=== PATIENT | female | born 1955 | race Caucasian/White ===

== ENCOUNTER 2019-05-09 12:30 | Inpatient (IN) | payer BC ==
[2019-05-09 13:21] LABS: Basophils % (A) 1 %; Eosinophils # (A) 0.1 k/uL (0-0.7); Eosinophils % (A) 2 %; HCT 40.2 % (34.0-46.0); HGB 13.6 gm/dL (11.4-16.0); Lymphocytes # (A) 1.5 k/uL (1.0-4.8); Lymphocytes % (A) 23 %; MCH 31.2 pg (25.0-35.0); MCHC 33.9 g/dL (31.0-37.0); Mean Platelet Volume 7.1; Monocytes # (A) 0.3 k/uL (0-1.0); Monocytes % (A) 5 %; Neutrophils # (A) 4.4 k/uL (1.3-7.7); Neutrophils % (A) 66 %; Platelet Count 233 k/uL (150-450); RBC 4.37 m/uL (3.80-5.40); RDW 13.8 % (11.5-15.5); WBC 6.7 k/uL (3.8-10.6)
--- NOTE | 2019-05-09 13:29 | XR ---
EXAMINATION TYPE: XR chest 2V DATE OF EXAM: 05/09/2019 COMPARISON: NONE HISTORY: Chest pain TECHNIQUE: Frontal and lateral views of the chest are obtained. FINDINGS: There is no focal air space opacity, pleural effusion, or pneumothorax seen. The cardiac silhouette size is within normal limits. Mild multilevel degenerative changes of the spine. The oss eous structures are intact. IMPRESSION: No acute cardiopulmonary process.
[2019-05-09 13:32] LABS: Albumin 4.6 g/dL (3.5-5.0); Calcium 9.6 mg/dL (8.4-10.2); INR 0.9 (<1.2); Magnesium 1.9 mg/dL (1.6-2.3); Partial Thromboplastin Time 23.2 sec (22.0-30.0); Potassium 4.4 mmol/L (3.5-5.1); Prothrombin Time 10.1 sec (9.0-12.0); Total Bilirubin 0.5 mg/dL (0.2-1.3); Total Protein 7.8 g/dL (6.3-8.2)
[2019-05-09 13:51] LABS: Appearance,Urine Clear (Clear); Bilirubin,Urine Negative (Negative); Blood,Urine Small (Negative); Color,Urine Light Yellow; Glucose,Urine (UA) Negative (Negative); Ketones,Urine Negative (Negative); Leukocyte Esterase,Urine Small (Negative); Mucus,Urine Rare /hpf; Nitrite,Urine Negative (Negative); Protein,Urine Negative (Negative); RBC,Urine 2 /hpf (0-5); Specific Gravity,Urine 1.016 (1.001-1.035); Squamous Epithelial Cell,Urine 1 /hpf (0-4); Urobilinogen,Urine <2.0 mg/dL (<2.0)
--- NOTE | 2019-05-09 15:39 | ED ---
Chest Pain HPI - General Chief Complaint: Chest Pain Stated Complaint: chest pain Time Seen by Provider: 05/09/19 12:55 Source: patient Mode of arrival: wheelchair Limitations: no limitations - History of Present Illness Initial Comments: Patient is a 64-year-old female presenting to the emergency Department with complaints of chest pain that has been intermittent for the last 2 days. Patient states she noticed the pain yesterday while she was dancing. Patient states it felt like it was pressure across the top of her chest. Patient states it lasted approximately 2 hours. Patient denies any shortness of breath with this episode. Patient states it then happened again today while she was doing stuff around the house. She describes the pain as chest pressure, non radiating. No alleviating factors. Patient states right now, her pain is minimal 2/10. Patient denies any fever, chills, nausea, vomiting, abdominal pain. Patient states she was recently diagnosed with hyperlipidemia and her PCP wanted to do an EKG but she had refused. Patient has no previous history of heart disease. Upon arrival to ER, BP is 173/94, rest of vital signs are normal, afebrile. - Related Data Home Medications Medication Instructions Recorded Confirmed Cholecalciferol [Vitamin D3 (25 1,000 unit PO DAILY 05/09/19 05/09/19 Mcg = 1000 Iu)] Levothyroxine Sodium [Synthroid] 100 mcg PO DAILY 05/09/19 05/09/19 Lisinopril [Zestril] 10 mg PO DAILY 05/09/19 05/09/19 Magnesium 200 mg PO DAILY 05/09/19 05/09/19 [place]-3 Fatty Acids/Fish Oil [Fish 1 cap PO DAILY 05/09/19 05/09/19 Oil 1,000 mg Softgel] Red Yeast Rice 600 mg PO DAILY 05/09/19 05/09/19 Allergies Allergy/AdvReac Type Severity Reaction Status Date / Time No Known Allergies Allergy Verified 05/09/19 13:17 Review of Systems ROS Statement: Those systems with pertinent positive or pertinent negative responses have been documented in the HPI. ROS Other: All systems not noted in ROS Statement are negative. EKG Findings - EKG Comments: EKG Findings:: Ventricular rate 68, AK interval 194, QTC 431. Normal sinus rhythm, no acute ST segment changes. Repeat EKG approximately half hour later shows ventricular rate 59, AK interval 200, QTC 413. Slight sinus bradycardia otherwise normal sinus rhythm. Past Medical History Past Medical History: Hypertension, Thyroid Disorder History of Any Multi-Drug Resistant Organisms: None Reported Additional Past Surgical History / Comment(s): thyroid surgery Past Psychological History: No Psychological Hx Reported Smoking Status: Never smoker Past Alcohol Use History: Occasional Past Drug Use History: None Reported General Exam - General Exam Comments Initial Comments: GENERAL: Well-appearing, well-nourished and in no acute distress. HEAD: Atraumatic, normocephalic. EYES: Pupils equal round and reactive to light, extraocular movements intact, sclera anicteric, conjunctiva are normal. ENT: TMs normal, nares patent, oropharynx clear without exudates. Moist mucous membranes. NECK: Normal range of motion, supple without lymphadenopathy or JVD. LUNGS: Breath sounds clear to auscultation bilaterally and equal. No wheezes rales or rhonchi. HEART: Regular rate and rhythm without murmurs, rubs or gallops. No pain with palpation of the sternum. ABDOMEN: Soft, nontender, normoactive bowel sounds. No guarding, no rebound. No masses appreciated. : Deferred EXTREMITIES: Normal range of motion, no pitting or edema. No clubbing or cyanosis. NEUROLOGICAL: Cranial nerves II through XII grossly intact. Normal speech, normal gait. PSYCH: Normal mood, normal affect. SKIN: Warm, Dry, normal turgor, no rashes or lesions noted. Limitations: no limitations Course Vital Signs 05/09/19 12:48 Temperature 98.5 F Pulse Rate 65 Respiratory 18 Rate Blood Pressure 173/94 O2 Sat by Pulse 99 Oximetry Chest Pain [facility] Patient is a 64-year-old female presenting with chest pain intermittent 2 days. Patient states onset started yesterday while she was dancing. Patient describes the pain as chest pressure across the top of her chest both left and right. Patient states yesterday up so lasted approximately 2 hours. There is no alleviating factors. Upon arrival to ER, BP slightly elevated rest of vital signs within normal limits. Afebrile. Patient's pain right now is very minimal 1/10. Patient's exam is unremarkable. CBC, CMP, coags, UA are all within normal limits. Troponin is 0.027. Chest x-ray shows no acute cardiopulmonary process. Given slight increase in troponin patient will be observed for repeat trop's and cardio consult. Case discussed with Dr. Morgan. Pt accepted by Dr. Hall. Disposition Clinical Impression: Chest pain Disposition: ADMITTED IP TO THIS HOSP Condition: Stable Instructions (If sedation given, give patient instructions): Chest Pain (ED) Is patient prescribed a controlled substance at d/c from ED?: No Referrals: Dago Medina MD [Primary Care Provider] - 1-2 days Decision Date: 05/09/19 Decision Time: 15:45
[2019-05-09] MEDS ORDERED: traMADol 50 MG TAB PO PRN (15:41)
[2019-05-09] MEDS ORDERED: NALOXONE 0.4 MG/ML 1 ML VIAL IV PRN (15:41)
[2019-05-09] MEDS ORDERED: ACETAMINOPHEN TAB 325 MG TAB PO PRN (15:41)
[2019-05-09] MEDS: SODIUM CHLORIDE 0.9% 1,000 ML IV SCH (16:54)
[2019-05-09] MEDS ORDERED: LISINOPRIL 10 MG TAB PO STA (17:26)
[2019-05-09] MEDS ORDERED: HEPARIN SODIUM,PORCINE 5,000 UNIT/ML 1 ML VIAL IV ONE (17:28)
[2019-05-09] MEDS ORDERED: HEPARIN SODIUM,PORCINE 5,000 UNIT/ML 1 ML VIAL IV PRN (17:28)
[2019-05-09] MEDS ORDERED: HEPARIN SOD,PORK IN 0.45% NACL 25,000 UNIT in 0.45% NACL 1 250ML.BAG IV SCH (17:30)
[2019-05-09] MEDS: METOPROLOL TARTRATE 12.5 MG TAB PO SCH (19:34)
[2019-05-09] MEDS ORDERED: ATORVASTATIN 40 MG TAB PO SCH (21:00)
[2019-05-09] MEDS ORDERED: SODIUM CHLORIDE 0.9% 1,000 ML in EMPTY BAG 1 BAG IV ONE (23:42)
[2019-05-09] MEDS ORDERED: ALPRAZolam 0.5 MG TAB PO PRN (23:42)
[2019-05-09] MEDS ORDERED: NITROGLYCERIN SL TABS 0.4 MG TAB SUBLINGUAL PRN (23:42)
[2019-05-09] MEDS ORDERED: ASPIRIN 325 MG TAB PO STA (23:42)
[2019-05-10] MEDS ORDERED: SODIUM CHLORIDE 0.9% 1,000 ML IV SCH
[2019-05-10] MEDS: METOPROLOL TARTRATE 12.5 MG TAB PO SCH ×2 (06:02→09:49)
[2019-05-10] MEDS: MAGNESIUM OXIDE 400 MG TAB PO SCH (06:03)
[2019-05-10] MEDS: LEVOTHYROXINE 100 MCG TAB PO SCH ×2 (06:03→23:58)
[2019-05-10] MEDS: LISINOPRIL 10 MG TAB PO SCH (06:03)
--- NOTE | 2019-05-10 06:24 | CONS ---
CONSULTATION Sherice Gonzalez is a 64-year-old lady with a history of hypertension and hypercholesterolemia, also has had a subtotal thyroidectomy. She is otherwise a fairly active person. Has not had a stress test in the past. There was a festival and she danced pretty much all day, had a very good time, but she started feeling chest pressure and heaviness and came into the emergency room. EKG in the ER was unremarkable and the initial troponin was unremarkable. However, the repeat troponin is abnormal at 0.147. EKG is still unremarkable. She is resting comfortably without symptoms. Her chest pressure has improved. Her laboratory data otherwise is unremarkable. Renal function is good. Hemoglobin and platelet count are good. Patient is free of chest pain, but clearly there is evidence of chest discomfort suggestive of an acute ischemic syndrome with abnormal troponin. Because of non-ST elevation FL, I am recommending coronary angiography. The rationale, risks, benefits, options were explained to the patient. She understands all details and wishes to proceed with the procedure. PAST MEDICAL HISTORY: This is remarkable for hypertension and hypercholesterolemia. She does not take any cholesterol medications. She also has hypothyroidism on replacement therapy. No documented evidence of any prior myocardial infarction or CVA. ALLERGIES: None. MEDICATIONS: Medications include red yeast rice, levothyroxine 100 mcg daily, Zestril 10 mg daily, and she takes omega-3 fatty acids She is status post thyroid surgery. CORONARY RISK FACTORS: Hypertension, hyperlipidemia are major risk factors. No family history and patient is not a smoker. PHYSICAL EXAMINATION: On examination, blood pressure is 124/70, pulse rate is 60 per minute, regular. HEENT: Unremarkable. Fundus was not examined by me. Neck is supple. No JVD. I do not hear any carotid bruit. There is no thyromegaly. Heart exam reveals S1, S2 heard normally in all areas. Lungs are clear. Abdomen is soft, nontender. Lower extremities reveal normal pulses. No edema. Central nervous system is grossly within normal limits. EKG revealed sinus bradycardia no acute changes. LABORATORY DATA: Laboratory data suggests elevated troponin at 0.147. IMPRESSION: 1. Acute ischemic syndrome with non-ST elevation myocardial infarction in a patient with exertional chest pain strongly suggestive of angina pectoris. 2. Hypertension. 3. Hypercholesterolemia. 4. History of thyroid surgery on replacement therapy. RECOMMENDATIONS: I am recommending that we heparinize the patient, place her on aspirin, beta blockers and I am advising coronary angiography and intervention based on the findings. The rationale, risks, benefits, options were explained to the patient. She understands all details and wishes to proceed with the procedure which will be scheduled for 7:30 a.m. tomorrow. LESTER / YISEL: [id number] /
[2019-05-10 06:36] LABS: Basophils # (A) 0.1 k/uL (0-0.2); Basophils % (A) 1 %; Eosinophils # (A) 0.2 k/uL (0-0.7); Eosinophils % (A) 3 %; HCT 41.4 % (34.0-46.0); HGB 13.8 gm/dL (11.4-16.0); Lymphocytes # (A) 2.4 k/uL (1.0-4.8); Lymphocytes % (A) 38 %; MCH 30.8 pg (25.0-35.0); MCHC 33.3 g/dL (31.0-37.0); MCV 92.7 fL (80.0-100.0); Mean Platelet Volume 7.2; Monocytes # (A) 0.3 k/uL (0-1.0); Monocytes % (A) 5 %; Neutrophils # (A) 3.1 k/uL (1.3-7.7); Neutrophils % (A) 49 %; Platelet Count 231 k/uL (150-450); RBC 4.47 m/uL (3.80-5.40); WBC 6.4 k/uL (3.8-10.6)
[2019-05-10] MEDS ORDERED: VERAPAMIL 2.5 MG/ML 2 ML AMP ONE (07:23)
[2019-05-10] MEDS ORDERED: LIDOCAINE 1% INJ 10MG/ML (20 ML MDV) ONE ×2 (07:23→11:59)
[2019-05-10] MEDS ORDERED: LIDOCAINE 1% INJ 10MG/ML (20 ML MDV) SQ ONE (07:37)
[2019-05-10] MEDS ORDERED: MIDAZOLAM (PF) 2 MG/2 ML VIAL IV ONE (07:37)
[2019-05-10] MEDS ORDERED: SODIUM CHLORIDE 0.9% 500 ML 500 ML IV ONE (07:37)
[2019-05-10] MEDS ORDERED: BIVALIRUDIN 250 MG in SODIUM CHLORIDE 0.9% 50 ML IV ONE (07:46)
[2019-05-10] MEDS ORDERED: BIVALIRUDIN BOLUS 250 MG/50 ML IV ONE (07:46)
[2019-05-10] MEDS ORDERED: IOPAMIDOL-370 100ML BTL INJ ONE ×4 (07:49→12:43)
[2019-05-10] MEDS ORDERED: TICAGRELOR 90 MG TAB ONE (07:55)
[2019-05-10] MEDS ORDERED: TICAGRELOR 90 MG TAB PO ONE (07:56)
[2019-05-10] MEDS: NITROGLYCERIN 1000MCG/10ML SYRINGE INTRACORON ONE ×2 (08:02→12:26)
[2019-05-10] MEDS ORDERED: RX INFO: IV CONTRAST WAS GIVEN 1 EACH MISC MISCELLANE PRN (08:20)
[2019-05-10] MEDS ORDERED: ZOLPIDEM 5 MG TAB PO PRN (08:20)
[2019-05-10] MEDS ORDERED: MAG HYDROX/AL HYDROX/SIMETH 30 ML CUP PO PRN (08:20)
[2019-05-10] MEDS ORDERED: ATROPINE SULFATE 0.1 MG/ML 10ML SYRINGE IV PRN (08:20)
[2019-05-10] MEDS: ONDANSETRON 4 MG/2 ML VIAL IVP PRN ×2 (08:45→11:43)
[2019-05-10] MEDS ORDERED: ASPIRIN 81 MG PO SCH (09:00)
[2019-05-10] MEDS: SODIUM CHLORIDE 0.9% 1,000 ML IV SCH ×3 (09:23→21:10)
--- NOTE | 2019-05-10 09:57 | CC ---
CARDIAC CATHETERIZATION REPORT DATE OF SERVICE: May 10, 2019 PROCEDURE: 1. Left heart catheterization and coronary angiography. 2. PTCA and stenting of mid LAD with a drug-eluting stent. PERFORMED BY: Dr. Lakisha Vilchis. Moderate conscious sedation time was 36 minutes. Patient was administered Versed. Oxygen saturation, hemodynamics and EKG were monitored closely. CLINICAL INFORMATION: Mrs. Sherice Gonzalez is a 64-year-old lady with a known history of hypothyroidism, hypertension, and hyperlipidemia, came into the hospital with exertional chest pain and elevated troponin suggestive of non-ST elevation VT. She was Polka dancing and developed chest pain and tightness and pressure. Troponin initially was normal went up with EKG changes in the anterior leads suggestive of anterior ST-elevation VT. She was advised coronary angiography after due discussion regarding risks, benefits, and options. PROCEDURE NOTE: Under local anesthesia and strict aseptic precautions, a 6-Luxembourger introducer was placed in the right femoral artery. A standard right Jordan catheter was used to perform coronary angiography of the right coronary artery. Using a left 3.5 Jordan guide catheter, I performed selective coronary angiography of the left system, went on to proceed with PCI of the mid LAD. PCI of LAD was performed using the 3.5 left Jordan guide catheter. A run-through wire was used to cross the lesion. A 2.25 caliber 12 mm Trek balloon was used to pre-dilate the lesion. Initially I tried a 23 mm, but it was too long and therefore switched over to 18 mm long 2.5 caliber Xience stent and deployed this at 11 atmospheres. Patient had chest pain and EKG changes. Excellent angiographic result was achieved. The patient received 180 mg of Brilinta orally. She was placed on Angiomax bolus and infusion as per protocol. Following the procedure, the sheath was sutured and she was sent to the room in a stable condition. Excellent angiographic result without complication was achieved. CORONARY ANGIOGRAPHY FINDINGS: RIGHT CORONARY ARTERY: Technically dominant vessel has minor irregularities and distally it bifurcates into a PDA and PLV, both of which have about a 30% to 40% narrowing. PLV is larger than PDA, supplies a fair amount of myocardium. No significant disease. This is a super dominant RCA. LEFT MAIN CORONARY ARTERY: Short patent disease-free vessel that bifurcates into LAD and circumflex. LEFT ANTERIOR DESCENDING CORONARY ARTERY: Good caliber vessel extends along the anterior wall, starts off with good caliber, gives off small diagonal branch then there is a large diagonal branch that has only minor irregularities and 2 additional septal branches. After the 2 septal and a large diagonal branch, there is a 99% stenosis eccentric with some thrombus and haziness and this appears to be the culprit lesion. Beyond this, the caliber of the vessel is small and has somewhat of a sluggish flow, runs all the way to the apex in a tortuous fashion. Mid LAD therefore has a 95% to 99% stenosis with haziness. Large diagonal proximal to that is patent without significant disease. LEFT POSTERIOR CIRCUMFLEX CORONARY ARTERY: Technically nondominant vessel gives off a single obtuse marginal that runs laterally and is diffusely diseased in the AV groove, minor irregularities no significant disease. FINAL IMPRESSION: This patient has a 95% mid LAD lesion. A right-dominant system. Left ventricular end- diastolic pressure was 15 to 16 mmHg without any gradient across the aortic valve. The pigtail catheter was used to check LV pressure but left ventriculogram was not performed. FINAL IMPRESSION: 1. Slightly elevated filling pressure with no gradient across aortic valve. 2. RCA has a superdominant vessel with about 30% to 40% disease in the PLV branch. No other significant disease. 3. Circumflex is small nondominant and diffusely diseased. 4. LAD has a 95% mid lesion. RECOMMENDATIONS: I recommended PCI of mid LAD and this was performed expeditiously with a drug-eluting stent with excellent result. MMODL / IJN: [id number] /
[2019-05-10] MEDS: NITROGLYCERIN SL TABS 0.4 MG TAB SUBLINGUAL PRN ×5 (10:40→15:43)
[2019-05-10 11:26] VITALS: BMI 28.3
[2019-05-10] MEDS ORDERED: MORPHINE SULFATE 2 MG/ML SYRINGE IVP STA (11:33)
--- NOTE | 2019-05-10 11:45 | ECHOF ---
Referral Reason:r/o valve dx/clot MEASUREMENTS -------- HEIGHT: 160.0 cm WEIGHT: 72.6 kg BP: 155/72 RVIDd: 2.8 cm (< 3.3) IVSd: 1.6 cm (0.6 - 1.1) LVIDd: 3.7 cm (3.9 - 5.3) LVPWd: 1.4 cm (0.6 - 1.1) IVSs: 1.6 cm LVIDs: 2.4 cm LVPWs: 1.6 cm LAESV Index (A-L): 27.46 ml/m Ao Diam: 3.1 cm (2.0 - 3.7) AV Cusp: 1.9 cm (1.5 - 2.6) LA Diam: 3.5 cm (2.7 - 3.8) EPSS: 0.5 cm MV E Yanick: 0.76 m/s MV DecT: 160 ms MV A Yanick: 0.60 m/s MV E/A Ratio: 1.26 RAP: 5.00 mmHg RVSP: 28.59 mmHg MV EF SLOPE: 97.39 mm/s (70 - 150) MV EXCURSION: 1.33 cm (> 18.000) FINDINGS -------- Resting bradycardia (HR<60bpm). This was a technically adequate study. The left ventricular size is normal. There is moderate concentric left ventricular hypertrophy. O verall left ventricular systolic function is low-normal with, an EF between 50 - 55 %. The diastoli c filling pattern is normal for the age of the patient. Apical lateral LV wall motion is hypokineti c. Apical septum LV wall motion is hypokinetic. The right ventricle is normal in size. Left atrium is normal size by volume. The right atrial size is normal. Interatrial and interventricular septum intact. The aortic valve is trileaflet and appears structurally normal. There is no evidence of aortic regu rgitation. There is no evidence of aortic stenosis. Eysl-jo-rmanrdoq mitral regurgitation is present. Mild tricuspid regurgitation present. There is mild pulmonary hypertension. The right ventricular systolic pressure, as measured by Doppler, is 28.59mmHg. There is no pulmonic regurgitation present. The aortic root size is normal. The inferior vena cava was not well visualized. There is no pericardial effusion. CONCLUSIONS -------- 1. Resting bradycardia (HR<60bpm). 2. This was a technically adequate study. 3. The left ventricular size is normal. 4. There is moderate concentric left ventricular hypertrophy. 5. Overall left ventricular systolic function is low-normal with, an EF between 50 - 55 %. 6. The diastolic filling pattern is normal for the age of the patient. 7. Apical lateral LV wall motion is hypokinetic. 8. Apical septum LV wall motion is hypokinetic. 9. The right ventricle is normal in size. 10. Left atrium is normal size by volume. 11. The right atrial size is normal. 12. Interatrial and interventricular septum intact. 13. The aortic valve is trileaflet and appears structurally normal. 14. There is no evidence of aortic regurgitation. 15. There is no evidence of aortic stenosis. 16. Jdua-lv-qzdmopxz mitral regurgitation is present. 17. Mild tricuspid regurgitation present. 18. There is mild pulmonary hypertension. 19. The right ventricular systolic pressure, as measured by Doppler, is 28.59mmHg. 20. There is no pulmonic regurgitation present. 21. The aortic root size is normal. 22. The inferior vena cava was not well visualized. 23. There is no pericardial effusion. DISTRICT RANGER: Alyssa Cortes RDCS
[2019-05-10] MEDS ORDERED: HEPARIN SODIUM 1,000 UN/ML (10ML VL) ONE (12:09)
[2019-05-10] MEDS ORDERED: IV FLUID CONTINUATION 1,000 ML IV ONE (12:10)
[2019-05-10] MEDS ORDERED: TIROFIBAN BOLUS 12.5MG/250 ML BAG IV ONE (12:15)
[2019-05-10] MEDS ORDERED: TIROFIBAN 12.5MG-250ML NS 250 ML IV ONE (12:16)
[2019-05-10] MEDS: NITROGLYCERIN 1000MCG/10ML SYRINGE INTRAARTER ONE ×2 (12:19→12:42)
--- NOTE | 2019-05-10 13:27 | PTCA ---
PERCUTANEOUSTRANS CORORONARY ANGIOGRAPHY DATE OF SERVICE: 05/10/2019 PROCEDURE: PTCA and stenting of mid LAD in the setting of an abrupt closure with acute in-stent thrombosis of a vessel that was stented a few hours ago. PERFORMED BY: Dr. Lakisha Vilchis. Moderate conscious sedation time was 44 minutes. Patient was administered Versed. Oxygen saturation, hemodynamics and EKG were monitored closely. CLINICAL INFORMATION: Mrs. Sherice Gonzalez came into the hospital with chest pain, exertional with ST-segment changes and troponin elevation suggestive of non-ST elevation [place]. Cardiac cath and PCI of LAD were performed this morning. She went to the room, was comfortable for a while, developed chest pain and precordial ST elevation and was promptly brought back to the crown and bridge dental lab technician. She was advised cardiac catheterization and possible PCI and with concern that this may be an acute in-stent thrombosis with appropriate closure. PROCEDURE NOTE: The existing 6-H[place] Konger introducer in the right femoral artery was used to perform procedure. I used a left Jordan a 3.5 curve guide catheter to cannulate the left coronary artery. Initial injection revealed that the vessel was totally occluded at the proximal portion of the stented area. I gave 5000 units of heparin and an Aggrastat drip bolus and drip was initiated. The patient's ACT was 249 initially. Subsequently it was 231. Additional 2000 units of heparin was given. Patient already received Brilinta 180 mg earlier today. The Aggrastat drip will be continued for at least 12 to 15 hours. I used a Whisper wire to cross the total occlusion and dilated the site of total occlusion with a 15 mm long Trek balloon. I then used an NC Trek balloon to dilate within the stent. I went up to 13 atmospheres. Excellent angiographic result was achieved, but at the distal end of the stent there appeared to be an edge dissection. This was addressed with an additional 2.25 caliber 12 mm Xience stent that was telescoped. This stent was deployed at 11 atmospheres. Excellent angiographic result was achieved. Very good WILFRED-3 flow was noted. The patient was free of chest pain. EKG improved remarkably. The sheath was sutured. The results were discussed with the patient and family and she was sent back to the telemetry unit. The sheath will probably be pulled in about 2 to 3 hours. Results were discussed with the patient and family. Excellent angiographic result was achieved. MMODL / YISEL: [id number] /
[2019-05-10] MEDS ORDERED: TIROFIBAN 12.5MG-250ML NS 250 ML IV SCH (13:30)
--- NOTE | 2019-05-10 14:59 | CDI ---
Documentation Clarification Form Date: 05/10/2019 From: Lynnette Aguilar RN CCDS Admit Date: 05/10/2019 8:20:00 AM Patient Name: Sherice Gonzalez Visit Number: [id number] Discharge Date: ATTENTION: The Clinical Documentation Specialists (CDI) and [facility] Coding Staff appreciate your assistance in clarifying documentation. Please respond to the clarification below the line at the bottom and electronically sign. The CDI & [facility] Coding staff will review the response and follow-up if needed. Please note: Queries are made part of the Legal Health Record. If you have any questions, please contact the author of this message via ITS. Dr. Ximena Vilchis An edge dissection is documented in the Percutaneoustrans Cororonary Angiography report. Patients Admitting Diagnosis: Chest Pain pain and precordial ST elevation Procedure performed: PTCA and stenting of mid LAD in the setting of an abrupt closure with acute in-stent thrombosis of a vessel that was stented a few hours ago. History/Risk Factors: 64 year old female Presents to the ED for chest pain. Medical Hx of HTN, Hypercholesterolemia Clinical Indicators: Per the Procedure Note I then used an NC Trek balloon to dilate within the stent. I went up to 13 atmospheres. Excellent angiographic result was achieved, but at the distal end of the stent there appeared to be an edge dissection. Treatment: additional 2.25 caliber 12mm Xience stent that was telescoped. In order to accurately reflect this patients severity of illness, please clarify if the dissection is a result of the surgical procedure? * Yes * No * Other, please specify : Edge dissection is as a result of high pressure inflation, which is an expected intra procedural event. * Unable to determine (Last Revision: December 2018) MTDD
[2019-05-10] MEDS ORDERED: NITROGLYCERIN-D5W PMX 50 MG in DEXTROSE/WATER 1 250ML.BAG IV SCH (15:45)
[2019-05-10 16:50] LABS: Glucose,Whole Blood 104 mg/dL (75-99)
[2019-05-10] MEDS: ALPRAZolam 0.25 MG TAB PO PRN (18:32)
[2019-05-10] MEDS ORDERED: HYDROmorphone 0.5 MG/0.5 ML SYRINGE IVP PRN (19:06)
[2019-05-10] MEDS: NITROGLYCERIN OINT 1 INCH/GM PACKET TOPICAL SCH ×2 (19:47→23:59)
--- NOTE | 2019-05-10 20:15 | P.HPIM ---
History of Present Illness H&P Date: 05/10/19 Chief Complaint: Chest pressure History of presenting complaint: This is a very pleasant 64-year-old patient of Dr. Medina. Follows with this REHAB SPECIALIST Addis Diggs. Patient the previous evening was dancing and developed chest pressure. It radiated to between her shoulders. There is no dizziness no lightheadedness no perspiration. [place] very tired. As it didn't go away decided to come to the ER. EKG had subtle changes. Patient troponin started to climb up. Relevant for acute non-Q-wave SD. He was taken to the cardiac cheesemaking laborer. Last night in a lady was placed. Later on patient started having more chest pressure or pain. Patient is taking back to the Offline Cutter. She was found to have a in-stent thrombosis and abrupt closure of the mid LAD stent and a repeat angioplasty and is a stent placed. Palpation symptom-free. Laying in bed. A bit tired. Review of systems: GEN.: Tired EYES: None HEENT: None NECK: None RESPIRATORY: None CARDIOVASCULAR: As above GASTROINTESTINAL: None GENITOURINARY: None MUSCULOSKELETAL: None LYMPHATICS: None HEMATOLOGICAL: None PSYCHIATRY: None NEUROLOGICAL: None Past medical history: Hypertension, hypothyroid Social history: No smoking. Alcohol occasionally. Works at [employer]. Family history: Pacemaker Physical examination: VITAL SIGNS: 98.5, 65, 18, 173.94, 99% room air upon presentation GENERAL: Average built, laying in bed, not in distress. EYES: Pupils equal. Conjunctiva normal. HEENT: External appearance of nose and ears normal, oral cavity grossly normal. NECK: JVD not raised; masses not palpable. HEART: First and second heart sounds are normal; no edema. LUNGS: Respiratory rate normal; clear to auscultation. ABDOMEN: Soft, nontender, liver spleen not palpable, no masses palpable. PSYCH: Alert and oriented x3; mood and affect normal. NEUROLOGICAL: Cranial nerves grossly intact; no facial asymmetry, power and sensation grossly intact. LYMPHATICS: No lymph nodes palpable in the axilla and neck INVESTIGATIONS, reviewed in the clinical context: White count 6.7 hemoglobin 13.6 platelets 233 potassium 4.4- creatinine 0.86 Troponin I 0.0-7-0.0147-0.224 EKG tracing personally reviewed by me-normal sinus rhythm Chest x-ray film personally reviewed by me-lung pelaez are clear 2-D echo-moderate LVH, EF 50-55% somewhat as a hypokinetic Assessment: -Acute non-Q-wave myocardial infarction, POA -Acute in-stent thrombosis with abrupt closure of the mid LAD stent with a repeat angioplasty and second stent placement -Emergent cardiac catheterization with angioplasty and stent to the LAD -Essential hypertension with urgency -Hypertensive heart disease -Hypothyroid Plan: Care was discussed with the patient. Current medications include aspirin, Lipitor, Synthroid, Zestril, Lopressor, Nitro-Bid, Brilinta. Patient currently in bed rest. Past Medical History Past Medical History: Hypertension, Thyroid Disorder Additional Past Medical History / Comment(s): Hypothyroid History of Any Multi-Drug Resistant Organisms: None Reported Additional Past Surgical History / Comment(s): thyroidectomy. Past Psychological History: No Psychological Hx Reported Smoking Status: Never smoker Past Alcohol Use History: Occasional Past Drug Use History: None Reported - Past Family History Mother Additional Family Medical History / Comment(s): PACEMAKER Medications and Allergies Home Medications Medication Instructions Recorded Confirmed Type Cholecalciferol [Vitamin D3 (25 1,000 unit PO DAILY 05/09/19 05/09/19 History Mcg = 1000 Iu)] Levothyroxine Sodium [Synthroid] 100 mcg PO DAILY 05/09/19 05/09/19 History Lisinopril [Zestril] 10 mg PO DAILY 05/09/19 05/09/19 History Magnesium 200 mg PO DAILY 05/09/19 05/09/19 History Staples-3 Fatty Acids/Fish Oil [Fish 1 cap PO DAILY 05/09/19 05/09/19 History Oil 1,000 mg Softgel] Red Yeast Rice 600 mg PO DAILY 05/09/19 05/09/19 History Allergies Allergy/AdvReac Type Severity Reaction Status Date / Time No Known Allergies Allergy Verified 05/09/19 13:17 Physical Exam Vitals: Vital Signs Temp Pulse Pulse Resp BP BP BP 05/10/19 11:05 43 L 16 106/61 05/10/19 10:58 47 L 102/61 05/10/19 10:50 50 L 129/77 05/10/19 10:45 64 149/75 05/10/19 10:40 60 157/88 05/10/19 10:03 50 L 16 141/84 05/10/19 09:35 97.5 F L 48 L 16 139/82 05/10/19 08:56 98.0 F 16 141/77 05/10/19 08:43 98.0 F 16 139/74 05/10/19 08:30 16 138/73 05/10/19 07:14 16 05/10/19 02:53 16 05/10/19 00:00 98.0 F 48 L 15 112/65 05/09/19 23:17 16 05/09/19 20:00 16 05/09/19 18:52 98.3 F 76 15 123/67 05/09/19 16:52 98.5 F 56 L 18 136/70 05/09/19 15:50 59 L 16 159/82 05/09/19 15:00 60 BP Pulse Ox 05/10/19 11:05 129/64 97 05/10/19 10:58 05/10/19 10:50 05/10/19 10:45 05/10/19 10:40 05/10/19 10:03 155/72 97 05/10/19 09:35 155/68 100 05/10/19 08:56 98 05/10/19 08:43 98 05/10/19 08:30 98 05/10/19 07:14 05/10/19 02:53 05/10/19 00:00 97 05/09/19 23:17 05/09/19 20:00 05/09/19 18:52 99 05/09/19 16:52 05/09/19 15:50 98 05/09/19 15:00 Intake and Output 05/09/19 05/10/19 05/10/19 22:59 06:59 14:59 Intake Total 462.5 Output Total 400 Balance 62.5 Intake: IV 462.5 Sodium Chloride 0.9% 1, 0 000 ml @ 75 mls/hr IV . [id number] [facility] Rx#:[id number] Output: Urine 400 Other: # Voids 1 1 Weight 72.575 kg Results CBC & Chem 7: 05/10/19 06:09 05/09/19 13:11 Labs: Abnormal Lab Results - Last 24 Hours (Table) 05/09/19 05/09/19 05/09/19 Range/Units 13:11 13:15 16:00 APTT (22.0-30.0) sec BUN 26 H (7-17) mg/dL Glucose 106 H (74-99) mg/dL Troponin I 0.147 H* (0.000-0.034) ng/mL Urine Blood Small H (Negative) Ur Leukocyte Esterase Small H (Negative) Urine Mucus Rare H (None) /hpf 05/09/19 05/09/19 Range/Units 23:14 23:14 APTT 62.2 H (22.0-30.0) sec BUN (7-17) mg/dL Glucose (74-99) mg/dL Troponin I 0.224 H* (0.000-0.034) ng/mL Urine Blood (Negative) Ur Leukocyte Esterase (Negative) Urine Mucus (None) /hpf Thrombosis Risk Factor Assmnt - Choose All That Apply Each Risk Factor Represents 2 Points: Age 61-74 years Thrombosis Risk Factor Assessment Total Risk Factor Score: 2 Thrombosis Risk Factor Assessment Level: Low Risk
[2019-05-10] MEDS: ATORVASTATIN 80 MG TAB PO SCH (21:08)
[2019-05-10] MEDS: METHYL SALICYLATE/MENTHOL CREAM 5 OZ TOPICAL PRN (21:08)
--- NOTE | 2019-05-10 22:13 | PN ---
PROGRESS NOTE This lady underwent cardiac cath early this morning and was found to have a significant LAD lesion that was stented. Few hours later, she developed in-stent thrombosis and had a restudy which revealed total occlusion and repeat dilatation and additional stent was placed at the distal end of the previous stent. After she came back to the telemetry unit, she complained of chest pain. EKG revealed basically evolving changes of anterior ID with ST and T-wave abnormality. There is no significant re-elevation of ST segments. Pain quality seems more or less pleuritic. I came back to see her, evaluated her. Talked to the patient and her 2 sons. I am recommending no intervention tonight, but we will do serial troponins and she will definitely have a troponin elevation because of her non-ST elevation ID and vessel occlusion, which was rapidly reperfused. I am recommending coronary angiography from the right femoral approach where she already has a sheath and I will keep that in through the night. At 6:30 am tomorrow, I will do coronary angiography to assess patency of LAD and if it is patent, I will pull the sheath. We will continue Aggrastat until 5:00 am today. I discussed my thoughts in detail with the patient and family members. Vital signs are stable. S1-S2 heard normally. Lungs are clear. Abdomen exam unchanged. Patient has no chest pain, only when she takes a deep breath. She has a twinge of discomfort mostly in the epigastric area. EKG reveals evolving changes of anterior ID without any acute findings. We will proceed with coronary angiography at 6:30 am. MMODL / IJN: [id number] /
--- NOTE | 2019-05-10 22:45 | PN ---
PROGRESS NOTE This patient was admitted with non ST-segment elevation myocardial infarction and underwent stent to the LAD. After patient came to the [address] [place] [address], the patient developed more chest pain. EKG showed J-point ST-segment elevation in V2 and V3 and patient was taken back to the airport maintenance laborer. The patient had acute stent thrombosis and underwent additional stenting to the LAD and she was started on Aggrastat. Initially patient was pain free. Subsequently about an hour later the patient again started having mild chest discomfort. The pain was diffuse across the chest. Repeat EKG does not show any ST-segment elevation, but there is a T-wave inversion suggestive of evolving changes of recent anterior wall myocardial infarction. I discussed the condition with Dr. Lakisha Vilchis. He will be back to re-evaluate the patient. I will transfer the patient to ICU and treat her with Dilaudid. Continue Aggrastat and we will keep her sheath in until the patient remains stable. MMODL / IJN: [id number] /
[2019-05-11] MEDS: NITROGLYCERIN OINT 1 INCH/GM PACKET TOPICAL SCH ×4 (05:31→23:09)
[2019-05-11 05:36] LABS: Basophils % (A) 0 %; Eosinophils # (A) 0.1 k/uL (0-0.7); Eosinophils % (A) 1 %; HGB 11.6 gm/dL (11.4-16.0); Lymphocytes # (A) 1.6 k/uL (1.0-4.8); Lymphocytes % (A) 20 %; MCHC 34.1 g/dL (31.0-37.0); Monocytes # (A) 0.5 k/uL (0-1.0); Monocytes % (A) 6 %; Neutrophils # (A) 5.8 k/uL (1.3-7.7); Neutrophils % (A) 70 %; Platelet Count 190 k/uL (150-450); RBC 3.74 m/uL (3.80-5.40); RDW 12.4 % (11.5-15.5); WBC 8.3 k/uL (3.8-10.6)
[2019-05-11 05:41] LABS: African American GFR (CKD) >90 (>60 ml/min/1.73 sqM); Anion Gap 5 mmol/L; Blood Urea Nitrogen 13 mg/dL (7-17); Calcium 8.5 mg/dL (8.4-10.2); Carbon Dioxide 25 mmol/L (22-30); Chloride 108 mmol/L (98-107); Glucose 106 mg/dL (74-99); Potassium 3.6 mmol/L (3.5-5.1); Sodium 138 mmol/L (137-145)
[2019-05-11] MEDS ORDERED: MIDAZOLAM (PF) 2 MG/2 ML VIAL IVP ONE (06:35)
[2019-05-11] MEDS ORDERED: LIDOCAINE 1% INJ 10MG/ML (20 ML MDV) ONE (06:36)
[2019-05-11] MEDS ORDERED: LIDOCAINE 1% INJ 10MG/ML (20 ML MDV) SQ ONE (06:37)
[2019-05-11] MEDS ORDERED: IOPAMIDOL-370 100ML BTL INJ ONE (06:45)
[2019-05-11] MEDS ORDERED: RX INFO: IV CONTRAST WAS GIVEN 1 EACH MISC MISCELLANE PRN (07:01)
[2019-05-11] MEDS ORDERED: IV FLUID CONTINUATION 1,000 ML IV ONE (07:03)
[2019-05-11] MEDS ORDERED: TICAGRELOR 90 MG TAB ONE (07:08)
[2019-05-11] MEDS ORDERED: Potassium Replacement Protocol 1 EACH MISC MISCELLANE PRN (07:12)
[2019-05-11] MEDS ORDERED: SODIUM CHLORIDE 0.9% 1,000 ML IV SCH (07:15)
[2019-05-11] MEDS ORDERED: ASPIRIN 81 MG PO STA (07:16)
[2019-05-11] MEDS ORDERED: TICAGRELOR 90 MG TAB PO STA (07:16)
--- NOTE | 2019-05-11 07:44 | CC ---
CARDIAC CATHETERIZATION REPORT DATE OF SERVICE: 05/11/2019 PROCEDURE: Left heart catheterization and coronary angiography. PERFORMED BY: Dr. Lakisha Vilchis. Moderate conscious sedation time was 17 minutes. Patient was administered Versed. Oxygen saturation, hemodynamics and EKG were monitored closely. CLINICAL INFORMATION: Mrs. Sherice Gonzalez is a 64-year-old lady who presented with a non-ST elevation OH with anterior ST-T changes and elevated troponin about 36 hours ago. I performed stenting yesterday animal husbandman at 7:30 of mid LAD with a drug-eluting stent, which was complicated by an acute in-stent thrombosis a few hours later and underwent repeat stenting of the distal end of the stent and redilatation of the existing stent. This was yesterday around noon time. She had more chest pain and was transferred to the ICU. However, the troponin profile did not suggest any reinfarction. The sheath was left in place and she was advised to come back today for reinjection to assess patency of LAD. Rationale, risks, benefits, options were discussed at length with the patient and her family, specifically her 2 sons. PROCEDURE NOTE: The existing 6-Yi introducer in the right femoral artery was used to perform procedure. A 3.5 left and a 4.0 right diagnostic Jordan catheters were used to perform selective coronary angiography and the same right catheter was used to check LV pressures and LV gram was not performed. The sheath was then pulled after she was taken off the table in the ESU and manual pressure to secure hemostasis was advised. Patient tolerated the procedure well without complications. CARDIAC CATHETERIZATION FINDINGS: The left ventricular end-diastolic pressure was about 14 mmHg without any significant gradient across the aortic valve. CORONARY ANGIOGRAPHY FINDINGS: LEFT MAIN CORONARY ARTERY: Short patent vessel free of significant disease that immediately bifurcates into LAD and circumflex. No significant disease in the left main. LEFT ANTERIOR DESCENDING CORONARY ARTERY: Good caliber vessel extends along the anterior wall, gives off a good-sized diagonal and septal branch both of which are patent and immediately beyond the septal branch. There is a stented segment which is widely patent with excellent flow and the vessel opacifies all the way to the apex in a tortuous fashion, has minor irregularities. LAD is therefore widely patent with brisk flow. LEFT POSTERIOR CIRCUMFLEX CORONARY ARTERY: Technically a nondominant vessel, has minor irregularities. No significant disease. RIGHT CORONARY ARTERY: Large dominant disease-free vessel which divides into 2 large branches distally, has no significant disease. Left ventriculogram was not performed. FINAL IMPRESSION: This patient has widely patent LAD that was stented yesterday after an acute in-stent thrombosis. She has a right dominant system. Normal filling pressures. No gradient across aortic valve. No significant disease in the nondominant circumflex or the dominant RCA. Results were discussed with the patient. No family members were available. RECOMMENDATIONS: Continued medical therapy with dual antiplatelet therapy, statins and beta blockers. The patient will be sent back to the ICU after the sheath is pulled in the ESU. MMODL / IJN: [id number] /
[2019-05-11 07:56] LABS: Glucose,Whole Blood 127 mg/dL (75-99)
[2019-05-11] MEDS ORDERED: POTASSIUM CHLORIDE ER 20 MEQ TAB.ER PO ONE (08:00)
[2019-05-11] MEDS: LISINOPRIL 10 MG TAB PO SCH (09:29)
[2019-05-11] MEDS: LEVOTHYROXINE 100 MCG TAB PO SCH (09:29)
[2019-05-11] MEDS: ALPRAZolam 0.25 MG TAB PO PRN (09:30)
[2019-05-11] MEDS: MAGNESIUM OXIDE 400 MG TAB PO SCH (09:30)
[2019-05-11] MEDS: SODIUM CHLORIDE 0.9% 1,000 ML IV SCH ×2 (10:44→23:18)
--- NOTE | 2019-05-11 11:02 | PN ---
PROGRESS NOTE This patient is status post anterior wall myocardial infarction which was complicated by acute stent thrombosis. She is doing well. Patient had a repeat cardiac catheterization done this morning. The stent is patent. The patient feels much better. She is not having any chest pain or discomfort. Blood pressure is 133/55 mmHg. First and second heart sounds are normal. Lungs are clear to auscultation and percussion. We will continue the current medications and once she is stable, patient will be ambulated. MMODL / IJN: [id number] /
--- NOTE | 2019-05-11 11:39 | ECHOF ---
Referral Reason:Eval LV function eval for pericardial effusion MEASUREMENTS -------- HEIGHT: 160.0 cm WEIGHT: 72.6 kg BP: 129/68 HR_2Ch_Q: 51 bpm HR_4Ch_Q: 52 bpm LVVED_2Ch_Q: 110 ml LVVED_4Ch_Q: 91 ml LVVED_BiP_Q: 101 ml LVVES_2Ch_Q: 59 ml LVVES_4Ch_Q: 50 ml LVVES_BiP_Q: 54 ml LVEF_2Ch_Q: 47 % LVEF_4Ch_Q: 44 % LVEF_BiP_Q: 46 % LVSV_2Ch_Q: 51 ml LVSV_4Ch_Q: 40 ml LVSV_BiP_Q: 47 ml LVCO_2Ch_Q: 2.6 l/min LVCO_4Ch_Q: 2.1 l/min LVCO_BiP_Q: 2.4 l/min LVLs_2Ch_Q: 6.8 cm LVLs_4Ch_Q: 6.9 cm LVLd_2Ch_Q: 8.2 cm LVLd_4Ch_Q: 8.4 cm FINDINGS -------- Sinus rhythm. Limited Study Overall left ventricular systolic function is mild-moderately impaired with, an EF between 40 - 45 %. Apical inferior LV wall motion is hypokinetic. Apical septum LV wall motion is hypokinetic. There is no pericardial effusion. CONCLUSIONS -------- 1. Sinus rhythm. 2. Limited Study 3. Overall left ventricular systolic function is mild-moderately impaired with, an EF between 40 - 45 %. 4. Apical inferior LV wall motion is hypokinetic. 5. Apical septum LV wall motion is hypokinetic. 6. There is no pericardial effusion. RN HEMO DIALYSIS: Sheeba Jay RDCS
[2019-05-11] MEDS: METOPROLOL TARTRATE 12.5 MG TAB PO SCH (15:30)
--- NOTE | 2019-05-11 20:01 | P.PN ---
Progress Note - Text Progress Note Date: 05/11/19 Chief Complaint: Chest pressure History of presenting complaint: This is a very pleasant 64-year-old patient of Dr. Medina. Follows with this AUTOMATIC WASHER MECHANIC Addis Diggs. Patient the previous evening was dancing and developed chest pressure. It radiated to between her shoulders. There is no dizziness no lightheadedness no perspiration. [place] very tired. As it didn't go away decided to come to the ER. EKG had subtle changes. Patient troponin started to climb up. Relevant for acute non-Q-wave CO. He was taken to the cardiac wetlands conservation laborer. Last night in a lady was placed. Later on patient started having more chest pressure or pain. Patient is taking back to the Research And Development Researcher. She was found to have a in-stent thrombosis and abrupt closure of the mid LAD stent and a repeat angioplasty and is a stent placed. Today-sitting upon a chair. Yesterday after the second cardiac catheterization later patient had no chest pain. Was taken to the cardiac wetlands conservation laborer this morning. No further in stenosis. Otherwise patient stable. No symptoms. Review of systems: Was done for constitutional, cardiovascular, GI, pulmonary. relevant finding as above Active Medications Acetaminophen (Tylenol Tab) 650 mg PO Q6HR PRN PRN Reason: Mild Pain or Fever > 100.5 Al Hydroxide/Mg Hydroxide (Maalox) 30 ml PO Q4HR PRN PRN Reason: Heartburn Alprazolam (Xanax) 0.25 mg PO Q6HR PRN PRN Reason: Mild Anxiety Last Admin: 05/11/19 09:30 Dose: 0.25 mg Documented by: Alprazolam (Xanax) 0.5 mg PO Q6HR PRN PRN Reason: Moderate Anxiety Aspirin (Aspirin) 81 mg PO DAILY [facility] Atorvastatin Calcium (Lipitor) 80 mg PO HS [facility] Last Admin: 05/10/19 21:08 Dose: 80 mg Documented by: Atropine Sulfate (Atropine) 0.5 mg IV ONCE PRN PRN Reason: Symptomatic Bradycardia Hydromorphone HCl (Dilaudid) 0.5 mg IVP Q6HR PRN PRN Reason: Pain Sodium Chloride (Saline 0.9%) 1,000 mls @ 50 mls/hr IV .Q20H [facility] Last Admin: 05/11/19 10:44 Dose: Not Given Documented by: Cefazolin Sodium 1,000 mg/ (Sodium Chloride) 50 mls @ 100 mls/hr IVPB Q8HR [facility] Last Admin: 05/11/19 18:35 Dose: 100 mls/hr Documented by: Levothyroxine Sodium (Synthroid) 100 mcg PO 30 [facility] Last Admin: 05/11/19 09:29 Dose: 100 mcg Documented by: Lisinopril (Zestril) 10 mg PO DAILY [facility] Last Admin: 05/11/19 09:29 Dose: 10 mg Documented by: Magnesium Oxide (Mag-Ox) 200 mg PO DAILY [facility] Last Admin: 05/11/19 09:30 Dose: 200 mg Documented by: Methyl Salicylate (Thera-Gesic Cream) 1 applic TOPICAL TID PRN PRN Reason: Muscle Pain Last Admin: 05/10/19 21:08 Dose: 1 applic Documented by: Metoprolol Tartrate (Lopressor) 12.5 mg PO DAILY [facility] Last Admin: 05/11/19 15:30 Dose: Not Given Documented by: Miscellaneous Information (Rx Info: Iv Contrast Was Given) 1 each MISCELLANE DAILY PRN PRN Reason: Per Protocol Stop: 05/12/19 08:20 Miscellaneous Information (Rx Info: Iv Contrast Was Given) 1 each MISCELLANE DAILY PRN PRN Reason: Per Protocol Stop: 05/13/19 07:01 Miscellaneous Information (Potassium Per Protocol) 1 each MISCELLANE DAILY PRN; Protocol PRN Reason: Per Protocol Naloxone HCl (Narcan) 0.2 mg IV Q2M PRN PRN Reason: Opioid Reversal Nitroglycerin (Nitrostat) 0.4 mg SUBLINGUAL Q5M PRN PRN Reason: Chest Pain Last Admin: 05/10/19 15:43 Dose: 0.4 mg Documented by: Nitroglycerin (Nitro-Bid Oint) 1 inch TOPICAL Q6HR [facility] Last Admin: 05/11/19 18:37 Dose: Not Given Documented by: Ondansetron HCl (Zofran) 4 mg IVP Q8HR PRN PRN Reason: Nausea And Vomiting Last Admin: 05/10/19 11:43 Dose: 4 mg Documented by: Ticagrelor (Brilinta) 90 mg PO BID [facility] Tramadol HCl (Ultram) 50 mg PO Q6H PRN PRN Reason: Moderate Pain Last Admin: 05/10/19 03:13 Dose: 50 mg Documented by: Zolpidem Tartrate (Ambien) 5 mg PO HS PRN PRN Reason: Insomnia Physical examination: VITAL SIGNS: Afebrile, 78, 19, 122.6-6, 96% room air GENERAL: Sitting up in a chair, comfortable. EYES: Pupils equal. Conjunctiva normal. HEENT: External appearance of nose and ears normal, oral cavity grossly normal. NECK: JVD not raised; masses not palpable. HEART: First and second heart sounds are normal; no edema. LUNGS: Respiratory rate normal; clear to auscultation. ABDOMEN: Soft, nontender, liver spleen not palpable, no masses palpable. PSYCH: Alert and oriented x3; mood and affect normal. INVESTIGATIONS, reviewed in the clinical context: White count 8.3 and 11.6 potassium 3.6 creatinine 0.66 Admission tests: White count 6.7 hemoglobin 13.6 platelets 233 potassium 4.4- creatinine 0.86 Troponin I 0.0-7-0.0147-0.224 EKG tracing personally reviewed by me-normal sinus rhythm Chest x-ray film personally reviewed by me-lung pelaez are clear 2-D echo-moderate LVH, EF 50-55% somewhat as a hypokinetic Assessment: -Acute non-Q-wave myocardial infarction, POA -Acute in-stent thrombosis with abrupt closure of the mid LAD stent with a repeat angioplasty and second stent placement. Third cardiac catheterization did not reveal any new blockage -Emergent cardiac catheterization with angioplasty and stent to the LAD -Essential hypertension with urgency -Hypertensive heart disease -Hypothyroid Plan: Continue current medication treatment plan. Care was discussed with the patient. Patient in the ICU.
[2019-05-11] MEDS: TICAGRELOR 90 MG TAB PO SCH (20:21)
[2019-05-11] MEDS: ATORVASTATIN 80 MG TAB PO SCH (20:21)
[2019-05-12] MEDS: ALPRAZolam 0.25 MG TAB PO PRN (02:29)
[2019-05-12] MEDS: NITROGLYCERIN OINT 1 INCH/GM PACKET TOPICAL SCH ×3 (04:11→17:58)
[2019-05-12 05:03] LABS: Basophils % (A) 0 %; Eosinophils # (A) 0.1 k/uL (0-0.7); Eosinophils % (A) 2 %; HCT 34.1 % (34.0-46.0); HGB 11.4 gm/dL (11.4-16.0); Lymphocytes # (A) 1.5 k/uL (1.0-4.8); Lymphocytes % (A) 23 %; MCHC 33.5 g/dL (31.0-37.0); MCV 92.5 fL (80.0-100.0); Mean Platelet Volume 7.1; Monocytes # (A) 0.5 k/uL (0-1.0); Monocytes % (A) 7 %; Neutrophils % (A) 64 %; Platelet Count 195 k/uL (150-450); RBC 3.68 m/uL (3.80-5.40); RDW 13.5 % (11.5-15.5); WBC 6.3 k/uL (3.8-10.6)
[2019-05-12 05:12] LABS: African American GFR (CKD) >90 (>60 ml/min/1.73 sqM); Blood Urea Nitrogen 13 mg/dL (7-17); Calcium 8.8 mg/dL (8.4-10.2); Carbon Dioxide 25 mmol/L (22-30); Chloride 107 mmol/L (98-107); Glucose 98 mg/dL (74-99)
[2019-05-12 05:29] LABS: Anion Gap 6 mmol/L; Sodium 138 mmol/L (137-145)
[2019-05-12 06:20] LABS: Potassium 3.9 mmol/L (3.5-5.1)
[2019-05-12] MEDS ORDERED: Potassium Replacement Protocol 1 EACH MISC MISCELLANE PRN (06:26)
[2019-05-12] MEDS: LEVOTHYROXINE 100 MCG TAB PO SCH (06:33)
[2019-05-12] MEDS: METHYL SALICYLATE/MENTHOL CREAM 5 OZ TOPICAL PRN (06:35)
[2019-05-12] MEDS ORDERED: POTASSIUM CHLORIDE ER 20 MEQ TAB.ER PO SCH (07:00)
[2019-05-12] MEDS: MAGNESIUM OXIDE 400 MG TAB PO SCH (07:53)
[2019-05-12] MEDS: TICAGRELOR 90 MG TAB PO SCH ×2 (07:53→20:52)
[2019-05-12] MEDS: ASPIRIN 81 MG PO SCH (07:54)
[2019-05-12] MEDS: LISINOPRIL 10 MG TAB PO SCH (07:54)
[2019-05-12] MEDS: METOPROLOL TARTRATE 12.5 MG TAB PO SCH (07:56)
--- NOTE | 2019-05-12 11:12 | PN ---
PROGRESS NOTE This patient is admitted with a non STEMI elevation. The patient is doing fairly well. Denies any chest pain, shortness of breath. She is ambulated in the hallway. Patient is afebrile. Blood pressure is 129/82 mmHg. First and second heart sounds are normal. Lungs are clinically clear to auscultation and percussion. Patient's last hemoglobin was 11.4 with normal creatinine. The patient remains stable. She is educated about diet and the medications and she should be able to go home tomorrow. MMODL / IJN: [id number] /
[2019-05-12] MEDS: ATORVASTATIN 80 MG TAB PO SCH (20:52)
--- NOTE | 2019-05-12 22:22 | P.PN ---
Progress Note - Text Progress Note Date: 05/12/19 Chief Complaint: Chest pressure Interval history: This is a very pleasant 64-year-old patient of Dr. Medina. Follows with this ACUTE DIALYSIS REGISTERED NURSE Addis Diggs. Patient the previous evening was dancing and developed chest pressure. It radiated to between her shoulders. There is no dizziness no lightheadedness no perspiration. [place] very tired. As it didn't go away decided to come to the ER. EKG had subtle changes. Patient troponin started to climb up. Relevant for acute non-Q-wave [place]. He was taken to the cardiac mechanical laboratory technician. Last night in a lady was placed. Later on patient started having more chest pressure or pain. Patient is taking back to the Data Processing Operator. She was found to have a in-stent thrombosis and abrupt closure of the mid LAD stent and a repeat angioplasty and is a stent placed. Today-feeling better. Up in the hallway. Few Times. No chest pain or shortn ess of breath. Review of systems: Was done for constitutional, cardiovascular, GI, pulmonary. relevant finding as above Active Medications Acetaminophen (Tylenol Tab) 650 mg PO Q6HR PRN PRN Reason: Mild Pain or Fever > 100.5 Al Hydroxide/Mg Hydroxide (Maalox) 30 ml PO Q4HR PRN PRN Reason: Heartburn Alprazolam (Xanax) 0.25 mg PO Q6HR PRN PRN Reason: Mild Anxiety Last Admin: 05/12/19 02:29 Dose: 0.25 mg Documented by: Alprazolam (Xanax) 0.5 mg PO Q6HR PRN PRN Reason: Moderate Anxiety Aspirin (Aspirin) 81 mg PO DAILY [facility] Last Admin: 05/12/19 07:54 Dose: 81 mg Documented by: Atorvastatin Calcium (Lipitor) 80 mg PO HS [facility] Last Admin: 05/12/19 20:52 Dose: 80 mg Documented by: Atropine Sulfate (Atropine) 0.5 mg IV ONCE PRN PRN Reason: Symptomatic Bradycardia Hydromorphone HCl (Dilaudid) 0.5 mg IVP Q6HR PRN PRN Reason: Pain Sodium Chloride (Saline 0.9%) 1,000 mls @ 50 mls/hr IV .Q20H [facility] Last Admin: 05/11/19 23:18 Dose: Not Given Documented by: Cefazolin Sodium 1,000 mg/ (Sodium Chloride) 50 mls @ 100 mls/hr IVPB Q8HR [facility] Last Admin: 05/12/19 15:46 Dose: 100 mls/hr Documented by: Levothyroxine Sodium (Synthroid) 100 mcg PO 0630 [facility] Last Admin: 05/12/19 06:33 Dose: 100 mcg Documented by: Lisinopril (Zestril) 10 mg PO DAILY [facility] Last Admin: 05/12/19 07:54 Dose: 10 mg Documented by: Magnesium Oxide (Mag-Ox) 200 mg PO DAILY [facility] Last Admin: 05/12/19 07:53 Dose: 200 mg Documented by: Methyl Salicylate (Thera-Gesic Cream) 1 applic TOPICAL TID PRN PRN Reason: Muscle Pain Last Admin: 05/12/19 06:35 Dose: 1 applic Documented by: Metoprolol Tartrate (Lopressor) 12.5 mg PO DAILY [facility] Last Admin: 05/12/19 07:56 Dose: Not Given Documented by: Naloxone HCl (Narcan) 0.2 mg IV Q2M PRN PRN Reason: Opioid Reversal Nitroglycerin (Nitrostat) 0.4 mg SUBLINGUAL Q5M PRN PRN Reason: Chest Pain Last Admin: 05/10/19 15:43 Dose: 0.4 mg Documented by: Nitroglycerin (Nitro-Bid Oint) 1 inch TOPICAL Q6HR [facility] Last Admin: 05/12/19 17:58 Dose: Not Given Documented by: Ondansetron HCl (Zofran) 4 mg IVP Q8HR PRN PRN Reason: Nausea And Vomiting Last Admin: 05/10/19 11:43 Dose: 4 mg Documented by: Ticagrelor (Brilinta) 90 mg PO BID [facility] Last Admin: 05/12/19 20:52 Dose: 90 mg Documented by: Tramadol HCl (Ultram) 50 mg PO Q6H PRN PRN Reason: Moderate Pain Last Admin: 05/10/19 03:13 Dose: 50 mg Documented by: Zolpidem Tartrate (Ambien) 5 mg PO HS PRN PRN Reason: Insomnia Physical examination: VITAL SIGNS: 98.6, 72, 20, 126% he 5, 96% room air GENERAL: Sitting up in bed, comfortable. EYES: Pupils equal. Conjunctiva normal. HEENT: External appearance of nose and ears normal, oral cavity grossly normal. NECK: JVD not raised; masses not palpable. HEART: First and second heart sounds are normal; no edema. LUNGS: Respiratory rate normal; clear to auscultation. ABDOMEN: Soft, nontender, liver spleen not palpable, no masses palpable. PSYCH: Alert and oriented x3; mood and affect normal. INVESTIGATIONS, reviewed in the clinical context: White count 6.3 hemoglobin 11.4 creatinine 0.67 Admission tests: White count 6.7 hemoglobin 13.6 platelets 233 potassium 4.4- creatinine 0.86 Troponin I 0.0-7-0.0147-0.224 EKG tracing personally reviewed by me-normal sinus rhythm Chest x-ray film personally reviewed by me-lung pelaez are clear 2-D echo-moderate LVH, EF 50-55% somewhat as a hypokinetic Assessment: -Acute non-Q-wave myocardial infarction, POA -Acute in-stent thrombosis with abrupt closure of the mid LAD stent with a repeat angioplasty and second stent placement. Third cardiac catheterization did not reveal any new blockage -Emergent cardiac catheterization with angioplasty and stent to the LAD -Essential hypertension with urgency -Hypertensive heart disease -Hypothyroid Plan: Stable. Doing better. Care was discussed with the patient. Hopefully discharge in 24 hours.
[2019-05-13] MEDS: NITROGLYCERIN OINT 1 INCH/GM PACKET TOPICAL SCH ×3 (00:38→12:02)
[2019-05-13] MEDS: SODIUM CHLORIDE 0.9% 1,000 ML IV SCH (00:38)
[2019-05-13] MEDS: LEVOTHYROXINE 100 MCG TAB PO SCH (06:49)
[2019-05-13] MEDS: ASPIRIN 81 MG PO SCH (08:43)
[2019-05-13] MEDS: MAGNESIUM OXIDE 400 MG TAB PO SCH (08:43)
[2019-05-13] MEDS: TICAGRELOR 90 MG TAB PO SCH (08:43)
[2019-05-13] MEDS: LISINOPRIL 10 MG TAB PO SCH (08:43)
[2019-05-13] MEDS: METOPROLOL TARTRATE 12.5 MG TAB PO SCH (08:44)
[2019-05-13 09:20] VITALS: PULSE 60; RESP 18
[2019-05-13] MEDS ORDERED: METOPROLOL TARTRATE 25 MG TAB PO SCH (10:45)
[2019-05-13 13:24] VITALS: BP 112/70; TEMP 98.3
--- NOTE | 2019-05-13 22:51 | P.DS ---
Providers Date of admission: 05/10/19 08:20 Expected date of discharge: 05/13/19 Attending physician: Dav Hall Consults: 05/09/19 15:41 Consult Physician Stat Consulting Provider: Ximena Vilchis Consult Reason/Comments: Chest pain, trop 0.027 Do you want consulting provider notified?: Yes 05/10/19 08:20 Consult Physician Routine Consulting Provider: [facility] Consult Reason/Comments: Post Interventional patient Do you want consulting provider notified?: Already Contacted Primary care physician: [facility] Course: Chief Complaint: Chest pressure Interval history: This is a very pleasant 64-year-old patient of Dr. Medina. Follows with this CLINICAL TRIAL HEAD Addis Diggs. Patient the previous evening was dancing and developed chest pressure. It radiated to between her shoulders. There is no dizziness no lightheadedness no perspiration. [place] very tired. As it didn't go away decided to come to the ER. EKG had subtle changes. Patient troponin started to climb up. Relevant for acute non-Q-wave [place]. He was taken to the cardiac dental laboratory assistant. Last night in a lady was placed. Later on patient started having more chest pr essure or pain. Patient is taking back to the Rail Operations Controller. She was found to have a in-stent thrombosis and abrupt closure of the mid LAD stent and a repeat angioplasty and is a stent placed. Patient again had chest pressure and was taken for cardiac catheterization for the third time. No new blockages found. Patient doing much better. Up and about in the hallway. No chronic symptoms. Seen by cardiology. Okay to be discharged. Care was discussed with the patient. Discussed with Dr. VC Nelson. Wanted the patient to go home beta nadeem. Because of decreased heart rate patient is does not want to take the same. Discharge statement Consultation: Dr. VC Nelson from cardiology Dr. MICHAEL Vilchis from interventional cardiology Physical examination: VITAL SIGNS: 98.1, 60, 18, 11 1 x 67, 97% room air GENERAL: Sitting up in bed, comfortable. EYES: Pupils equal. Conjunctiva normal. HEENT: External appearance of nose and ears normal, oral cavity grossly normal. NECK: JVD not raised; masses not palpable. HEART: First and second heart sounds are normal; no edema. LUNGS: Respiratory rate normal; clear to auscultation. ABDOMEN: Soft, nontender, liver spleen not palpable, no masses palpable. PSYCH: Alert and oriented x3; mood and affect normal. INVESTIGATIONS, reviewed in the clinical context: White count 6.3 hemoglobin 11.4 creatinine 0.67 Admission tests: White count 6.7 hemoglobin 13.6 platelets 233 potassium 4.4- creatinine 0.86 Troponin I 0.0-7-0.0147-0.224 EKG tracing personally reviewed by me-normal sinus rhythm Chest x-ray film personally reviewed by me-lung pelaez are clear 2-D echo-moderate LVH, EF 50-55% somewhat as a hypokinetic Discharge diagnosis: -Acute non-Q-wave myocardial infarction, POA -Acute in-stent thrombosis with abrupt closure of the mid LAD stent with a repeat angioplasty and second stent placement. Third cardiac catheterization did not reveal any new blockage -Emergent cardiac catheterization with angioplasty and stent to the LAD -Essential hypertension with urgency -Hypertensive heart disease -Hypothyroid Disposition: Home Patient Condition at Discharge: Stable Plan - Discharge Summary Discharge Rx Participant: No New Discharge Prescriptions: New Aspirin 81 mg PO DAILY #30 chew Ticagrelor [Brilinta] 90 mg PO BID #60 tab Atorvastatin [Lipitor] 80 mg PO HS #30 tab Metoprolol Tartrate [Lopressor] 25 mg PO BID #60 tab Nitroglycerin Sl Tabs [Nitrostat] 0.4 mg SUBLINGUAL Q5M PRN #25 tab PRN Reason: Chest Pain Continue Magnesium 200 mg PO DAILY Lisinopril [Zestril] 10 mg PO DAILY Levothyroxine Sodium [Synthroid] 100 mcg PO DAILY Cholecalciferol [Vitamin D3 (25 Mcg = 1000 Iu)] 1,000 unit PO DAILY Discontinued Oliver-3 Fatty Acids/Fish Oil [Fish Oil 1,000 mg Softgel] 1 cap PO DAILY Red Yeast Rice 600 mg PO DAILY Discharge Medication List Cholecalciferol [Vitamin D3 (25 Mcg = 1000 Iu)] 1,000 unit PO DAILY 05/09/19 [History] Levothyroxine Sodium [Synthroid] 100 mcg PO DAILY 05/09/19 [History] Lisinopril [Zestril] 10 mg PO DAILY 05/09/19 [History] Magnesium 200 mg PO DAILY 05/09/19 [History] Aspirin 81 mg PO DAILY #30 chew 05/13/19 [Rx] Atorvastatin [Lipitor] 80 mg PO HS #30 tab 05/13/19 [Rx] Metoprolol Tartrate [Lopressor] 25 mg PO BID #60 tab 05/13/19 [Rx] Nitroglycerin Sl Tabs [Nitrostat] 0.4 mg SUBLINGUAL Q5M PRN #25 tab 05/13/19 [Rx] Ticagrelor [Brilinta] 90 mg PO BID #60 tab 05/13/19 [Rx] Follow up Appointment(s)/Referral(s): Ximena Vilchis MD [STAFF PHYSICIAN] - 05/16/19 8:00 am Dago Medina MD [Primary Care Provider] - 1-2 days Patient Instructions/Handouts: Heart Attack (DC), Chest Pain (ED), Low-Sodium Diet (DC) Activity/Diet/Wound Care/Special Instructions: pt qualifies for $5/mo [place]-coupon provided Discharge Disposition: HOME SELF-CARE
== END 2019-05-13 13:25 | disposition home or self-care (01) | DRG 247 ==
LOC: EC 12:30 → 1SOBS 14:59 → OBSVTOIN 05-10 08:20 → 3SCARD 05-10 08:55 → 2SICU 05-10 16:31
PROVIDERS: ADMIT Hospitalist; ATTEND Hospitalist
PROC: 4A023N7 Measurement of Cardiac Sampling and Pressure, Left Heart, Percutaneous Approach (ICD-10-PCS; 2019-05-10)
PROC: B2111ZZ Fluoroscopy of Multiple Coronary Arteries using Low Osmolar Contrast (ICD-10-PCS; 2019-05-10)
PROC: 027034Z Dilation of Coronary Artery, One Artery with Drug-eluting Intraluminal Device, Percutaneous Approach (ICD-10-PCS; principal; 2019-05-10 07:30)
PROC: 027034Z Dilation of Coronary Artery, One Artery with Drug-eluting Intraluminal Device, Percutaneous Approach (ICD-10-PCS; 2019-05-10 07:30)
PROC: 4A023N7 Measurement of Cardiac Sampling and Pressure, Left Heart, Percutaneous Approach (ICD-10-PCS; 2019-05-11)
PROC: B2111ZZ Fluoroscopy of Multiple Coronary Arteries using Low Osmolar Contrast (ICD-10-PCS; 2019-05-11)
DX: I21.4 Non-ST elevation (NSTEMI) myocardial infarction (principal); T82.867A Thrombosis due to cardiac prosthetic devices, implants and grafts, initial encounter; I11.9 Hypertensive heart disease without heart failure; E78.00 Pure hypercholesterolemia, unspecified; E78.5 Hyperlipidemia, unspecified; E89.0 Postprocedural hypothyroidism; I16.0 Hypertensive urgency; Z79.890 Hormone replacement therapy; Z79.899 Other long term (current) drug therapy; Y83.1 Surgical operation with implant of artificial internal device as the cause of abnormal reaction of the patient, or of later complication, without mention of misadventure at the time of the procedure
CPT/HCPCS: 36415; 71046; 80048; 80053; 81001; 83735; 84484; 85025; 85610; 85730; 93005; 93306; 93308; 93458; 94760; 99285; C1874